=== PATIENT | male | born 2000 | race Caucasian/White ===

== ENCOUNTER 2021-06-04 20:04 | Emergency (ER) | payer MEDICAID ==
[~2021-06-04] VITALS: Ht 170.2 cm; Wt 61.0 kg
[2021-06-04 20:15] VITALS: BP 130/77
--- NOTE | 2021-06-04 20:18 | NUR ---
TO LOBBY A/W BED AMBULATORY
[2021-06-04] MEDS ORDERED: FLUORESCEIN OPTH STRIP 1 MG OP ONE (20:40)
[2021-06-04] MEDS ORDERED: TETRACAINE HCL/PF 0.5% OPTH 4 ML BTL ONE (20:52)
[2021-06-04] MEDS ORDERED: TETRACAINE HCL/PF 0.5% OPTH 4 ML BTL OP ONE (20:55)
--- NOTE | 2021-06-04 21:00 | NUR ---
SEEN AND EXAMINED BY NIDIA
[2021-06-04] MEDS ORDERED: ERYT5OIN51 OP (21:03)
[2021-06-04 21:18] VITALS: BP 130/77
--- NOTE | 2021-06-04 21:18 | NUR ---
Patient discharged with v/s stable. Written and verbal after care instructions given and explained. Patient alert, oriented and verbalized understanding of instructions. Ambulatory with steady gait. All questions addressed prior to discharge. ID band removed. Patient advised to follow up with PMD. Rx of ERYTHROMYCIN given. Patient educated on indication of medication including possible reaction and side effects. Opportunity to ask questions provided and answered.
== END 2021-06-04 21:28 | disposition home or self-care (01) ==
LOC: MED 20:04
DX: T15.92XA Foreign body on external eye, part unspecified, left eye, initial encounter (principal); T15.02XA Foreign body in cornea, left eye, initial encounter
CPT/HCPCS: 65220; 99284

== ENCOUNTER 2022-02-28 16:42 | Emergency (ER) | payer MEDICAID, OTHER ==
[~2022-02-28] VITALS: Ht 167.6 cm; Wt 64.0 kg
[~2022-02-28 16:42] MED LIST: ERYT5OIN51 OP
[2022-02-28 17:00] VITALS: BP 140/75
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
--- NOTE | 2022-02-28 17:48 | NUR ---
GABRIELLA ROSARIO AT BEDSIDE FOR EVAL
[2022-02-28] MEDS ORDERED: KETOROLAC 30 MG/ML VIAL IM ONE (18:00)
[2022-02-28] MEDS ORDERED: IBUP-2213 PO (18:02)
[2022-02-28] MEDS ORDERED: CYCL-711 PO (18:02)
[2022-02-28] MEDS ORDERED: IBUPROFEN 600 MG TAB PO ONE (18:15)
--- NOTE | 2022-02-28 18:17 | NUR ---
GABRIELLA ROSARIO MADE AWARE PT REFUSED TORDAL
--- NOTE | 2022-02-28 18:28 | NUR ---
Patient discharged with v/s stable. Written and verbal after care instructions ABOUT ACUTE BACK PAIN given and explained. Patient alert, oriented and verbalized understanding of instructions. Ambulatory with steady gait. All questions addressed prior to discharge. ID band removed. Patient advised to follow up with PMD. Rx of FLEXERIL, MOTRIN given. Patient educated on indication of medication including possible reaction and side effects. Opportunity to ask questions provided and answered.
== END 2022-02-28 18:28 | disposition home or self-care (01) ==
LOC: MED 16:42
DX: S39.012A Strain of muscle, fascia and tendon of lower back, initial encounter (principal); S16.1XXA Strain of muscle, fascia and tendon at neck level, initial encounter; Z79.899 Other long term (current) drug therapy; Z79.1 Long term (current) use of non-steroidal anti-inflammatories (NSAID); Z79.2 Long term (current) use of antibiotics; V89.2XXA Person injured in unspecified motor-vehicle accident, traffic, initial encounter; Y93.89 Activity, other specified; Y92.410 Unspecified street and highway as the place of occurrence of the external cause; Y99.8 Other external cause status
CPT/HCPCS: 99283; J1885